=== PATIENT | male | born 1980 | race Caucasian/White ===

== ENCOUNTER 2017-11-25 03:18 | Emergency (ER) | payer MEDICARE, OTHER ==
[2017-11-25] MEDS ORDERED: NA CHLORIDE 0.9% 0 ML ONE (03:34)
[2017-11-25] MEDS ORDERED: NA CHLORIDE 0.9% 1,000 ML ONE (03:38)
[2017-11-25 04:04] LABS: Absolute Lymphocytes (CBC) 1.7 K/uL (0.7-4.9); Absolute Monocytes 0.8 K/uL (0.1-1.3); Absolute Neutrophil 9.5 K/uL (1.8-8.0); Basophils % 0.5 % (0-1.3); MCH 30.4 pg (27.0-35.0); MCV 90.2 fL (80-100); Monocytes % 6.6 % (3.3-12.3); RBC Red Blood Cell Count 5.21 M/uL (4.33-5.43)
[2017-11-25 04:08] LABS: Protime INR 1.09
[2017-11-25 04:21] LABS: Bicarbonate 26 mEq/L (21-31); Glucose Level 115 mg/dL (65-120); Lipase 17 U/L (22-51); Potassium 3.7 mEq/L (3.6-5.0); Sodium Level 136 mEq/L (135-145)
[2017-11-25 04:29] LABS: ALT/SGPT 24 IU/L (10-60); AST/SGOT 25 IU/L (10-42); Albumin 4.5 g/dL (3.2-5.5); Alkaline Phosphatase 118 IU/L (42-121); BUN Blood Urea Nitrogen 12 mg/dL (6-20); Bilirubin Total 0.6 mg/dL (0.3-1.2); CKMB Creatine Kinase MB 1.7 ng/ml (0.3-4.0); Creatine Phosphokinase 84 IU/L (22-269); Magnesium 2.1 mg/dL (1.8-2.5)
[2017-11-25 04:31] LABS: Bilirubin Direct 0.1 mg/dL (0-0.2)
[2017-11-25 04:47] LABS: Alcohol Serum/Plasma < 10 mg/dl; Salicylates Level < 4.0 mg/dl (<30)
--- NOTE | 2017-11-25 05:14 | ER ---
Nurse's Notes [facility] Name: Sg De La Garza Age: 37 yrs Sex: Male : 1980 Arrival Date: 11/25/2017 Time: 03:19 Bed 6 Private MD: Diagnosis: Weakness;Abdominal tenderness;Tobacco abuse counseling;Tobacco use Presentation: 11/25 03:31 Presenting complaint: Patient states: "I've been feeling weak the past couple of days"; lp1 States congestion, breaking out in a sweat, some upper abdominal pain and nausea. Transition of care: patient was not received from another setting of care. Initial Sepsis Screen: Does the patient meet any 2 criteria? No. Patient's initial sepsis screen is negative. Does the patient have a suspected source of infection? No. Patient's initial sepsis screen is negative. Care prior to arrival: None. 03:31 Method Of Arrival: Ambulatory lp1 03:31 Acuity: BEENA 3 lp1 03:52 Onset of symptoms was November 24, 2017. mg2 Historical: - Allergies: 03:34 Dilantin; lp1 - Home Meds: 03:34 Tegretol XR 400 mg Oral Tb12 3 tabs daily [Active]; lp1 - PMHx: 03:34 legally blind; Seizures; Manjeet Trever Syndrome; lp1 - PSHx: 03:34 None; lp1 - Immunization history:: Adult Immunizations up to date. - Social history:: Smoking status: Patient uses tobacco products, smokes one pack cigarettes per day. Patient uses Meth. - Family history:: not pertinent. Screenin:35 Abuse screen: Denies threats or abuse. Denies injuries from another. Nutritional lp1 screening: No deficits noted. Tuberculosis screening: No symptoms or risk factors identified. Fall Risk None identified. Assessment: 03:49 General: Appears in no apparent distress. comfortable, Behavior is calm, cooperative. mg2 Pain: Complains of pain in abdomen Pain does not radiate. Pain currently is 5 out of 10 on a pain scale. Quality of pain is described as aching, Pain began gradually, Is intermittent. Neuro: Level of Consciousness is awake, alert, obeys commands, Oriented to person, place, time. Cardiovascular: Capillary refill < 3 seconds Patient's skin is warm and dry. Respiratory: Airway is patent Respiratory effort is even, unlabored, Respiratory pattern is regular, symmetrical. GI: Reports lower abdominal pain. EENT: No signs and/or symptoms were reported regarding the EENT system. Derm: Skin is intact, Skin is pink, warm \\T\\ dry. normal. Musculoskeletal: No signs and/or symptoms reported regarding the musculoskeletal system. 04:38 Reassessment: Patient appears in no apparent distress at this time. Patient is alert, mg2 oriented x 3, equal unlabored respirations, skin warm/dry/pink. Vital Signs: 03:32 BP 139 / 91; Pulse 79; Resp 16; Temp 97.6(O); Pulse Ox 100% on R/A; Weight 63.5 kg; lp1 Height 5 ft. 8 in. (172.72 cm); 04:30 BP 156 / 101; Pulse 97; Resp 17; Pulse Ox 100% ; Pain 0/10; mg2 04:30 BP 148 / 94; Pulse 95; Resp 18; Pulse Ox 100% on R/A; Pain 0/10; mg2 03:32 Body Mass Index 21.29 (63.50 kg, 172.72 cm) lp1 ED Course: 03:19 Patient arrived in ED. ds1 03:24 Ar Laureano MD is Attending Physician. natividad 03:32 Triage completed. lp1 03:32 Siddharth Hernandez, WILBERT is Primary Nurse. mg2 03:32 Arm band placed on left wrist. lp1 03:35 Patient has correct armband on for positive identification. Placed in gown. Bed in low lp1 position. Call light in reach. monitoring tech on. Pulse ox on. NIBP on. 03:48 Inserted saline lock: 20 gauge in left antecubital area, using aseptic technique. Blood mg2 collected. 03:52 No provider procedures requiring assistance completed. mg2 04:10 Patient moved to radiology via wheelchair. kw 04:10 X-ray completed. Patient tolerated procedure well. kw 04:10 Patient moved back from radiology. kw 04:11 Abdomen Acute Series XRAY In Process Unspecified. EDMS 05:13 Clifton Alex MD is Referral Physician. natividad 05:31 IV discontinued, intact, bleeding controlled, No redness/swelling at site. Pressure mg2 dressing applied. Administered Medications: 03:47 Drug: NS 0.9% 1000 ml Route: IV; Rate: 1 bolus; Site: left antecubital; mg2 05:40 Follow up: Response: No adverse reaction; IV Status: Completed infusion mg2 Outcome: 05:13 Discharge ordered by MD. henson 05:41 Discharged to home ambulatory, with friend. mg2 05:41 Condition: stable 05:41 Discharge instructions given to patient, Instructed on discharge instructions, follow up and referral plans. medication usage, Demonstrated understanding of instructions, follow-up care, medications, Prescriptions given X 3. 05:43 Patient left the ED. mg2 Signatures: Dispatcher [employer] EDVT Ar Laureano MD MD cha Sanford, Demi ds1 Rufina Zaldivar Laura, WILBERT RN lp1 Siddharth Hernandez RN RN mg2 Corrections: (The following items were deleted from the chart) 05:41 05:31 Patient did not have IV access during this emergency room visit. intact, bleeding mg2 controlled, No redness/swelling at site. Pressure dressing applied, mg2
--- NOTE | 2017-11-25 05:14 | EDPHYS ---
Physician Documentation [facility] Name: Sg De La Garza Age: 37 yrs Sex: Male : 1980 Arrival Date: 11/25/2017 Time: 03:19 Bed 6 Private MD: ED Physician Ar Laureano HPI: 11/25 03:34 This 37 yrs old Male presents to ER via Ambulatory with complaints of natividad Weakness. 03:34 The patient presents to the emergency department with weakness of the entire body, natividad generalized weakness. Onset: The symptoms/episode began/occurred 3 day(s) ago. Context: occurred. Associated signs and symptoms: The patient has no apparent associated signs or symptoms. Severity of symptoms: At their worst the symptoms were mild moderate in the emergency department the symptoms are unchanged. Patient's baseline: Neuro: alert and fully oriented, Motor: no deficits, Ambulation: walks without assistance, Speech: normal, The patient has a previous history of. Historical: - Allergies: 03:34 Dilantin; lp1 - Home Meds: 03:34 Tegretol XR 400 mg Oral Tb12 3 tabs daily [Active]; lp1 - PMHx: 03:34 legally blind; Seizures; Manjeet Trever Syndrome; lp1 - PSHx: 03:34 None; lp1 - Immunization history:: Adult Immunizations up to date. - Social history:: Smoking status: Patient uses tobacco products, smokes one pack cigarettes per day. Patient uses Meth. - Family history:: not pertinent. ROS: 03:34 Constitutional: Negative for fever, chills, and weight loss, Eyes: Negative for injury, natividad pain, redness, and discharge, ENT: Negative for injury, pain, and discharge, Neck: Negative for injury, pain, and swelling, Cardiovascular: Negative for chest pain, palpitations, and edema, Respiratory: Negative for shortness of breath, cough, wheezing, and pleuritic chest pain, Back: Negative for injury and pain, : Negative for injury, bleeding, discharge, and swelling, MS/Extremity: Negative for injury and deformity, Skin: Negative for injury, rash, and discoloration, Psych: Negative for depression, anxiety, suicide ideation, homicidal ideation, and hallucinations, Allergy/Immunology: Negative for hives, rash, and allergies, Endocrine: Negative for neck swelling, polydipsia, polyuria, polyphagia, and marked weight changes. 03:34 Abdomen/GI: Positive for abdominal pain. 03:34 Abdomen/GI: Positive for 03:34 Abdomen/GI: Positive for abdominal pain, abdominal cramps. 03:34 Neuro: Positive for weakness. Exam: 03:34 Constitutional: This is a well developed, well nourished patient who is awake, alert, natividad and in no acute distress. Head/Face: Normocephalic, atraumatic. ENT: Nares patent. No nasal discharge, no septal abnormalities noted. Tympanic membranes are normal and external auditory canals are clear. Oropharynx with no redness, swelling, or masses, exudates, or evidence of obstruction, uvula midline. Mucous membranes moist. Neck: Trachea midline, no thyromegaly or masses palpated, and no cervical lymphadenopathy. Supple, full range of motion without nuchal rigidity, or vertebral point tenderness. No Meningismus. Chest/axilla: Normal chest wall appearance and motion. Nontender with no deformity. No lesions are appreciated. Cardiovascular: Regular rate and rhythm with a normal S1 and S2. No gallops, murmurs, or rubs. Normal PMI, no JVD. No pulse deficits. Respiratory: Lungs have equal breath sounds bilaterally, clear to auscultation and percussion. No rales, rhonchi or wheezes noted. No increased work of breathing, no retractions or nasal flaring. Abdomen/GI: Soft, non-tender, with normal bowel sounds. No distension or tympany. No guarding or rebound. No evidence of tenderness throughout. Back: No spinal tenderness. No costovertebral tenderness. Full range of motion. Male : Normal genitalia with no discharge or lesions. Skin: Warm, dry with normal turgor. Normal color with no rashes, no lesions, and no evidence of cellulitis. MS/ Extremity: Pulses equal, no cyanosis. Neurovascular intact. Full, normal range of motion. Neuro: Awake and alert, GCS 15, oriented to person, place, time, and situation. Cranial nerves II-XII grossly intact. Motor strength 5/5 in all extremities. Sensory grossly intact. Cerebellar exam normal. Normal gait. Psych: Awake, alert, with orientation to person, place and time. Behavior, mood, and affect are within normal limits. 03:34 Eyes: Periorbital structures: appear normal, no acute changes, Extraocular movements: no acute changes, Conjunctiva: no acute changes, Corneas: abrasion, a fluorescein strip employed to appreciate the findings, Sclera: no appreciated abnormality. 05:13 Musculoskeletal/extremity: DVT Exam: No signs of deep vein thrombosis. no pain, no natividad swelling, no tenderness, negative Homans' sign noted on exam, no appreciated bluish discoloration, no erythema, no increased warmth. Vital Signs: 03:32 BP 139 / 91; Pulse 79; Resp 16; Temp 97.6(O); Pulse Ox 100% on R/A; Weight 63.5 kg; lp1 Height 5 ft. 8 in. (172.72 cm); 04:30 BP 156 / 101; Pulse 97; Resp 17; Pulse Ox 100% ; Pain 0/10; mg2 04:30 BP 148 / 94; Pulse 95; Resp 18; Pulse Ox 100% on R/A; Pain 0/10; mg2 03:32 Body Mass Index 21.29 (63.50 kg, 172.72 cm) lp1 MDM: 03:24 Patient medically screened. [facility] 03:38 Data reviewed: vital signs, nurses notes, lab test result(s), EKG, radiologic studies, [facility] plain films. 11/25 03:32 Order name: Basic Metabolic Panel [facility] 11/25 03:32 Order name: BNP; Complete Time: 04:35 [facility] 11/25 03:32 Order name: CBC with Diff; Complete Time: 04:18 [facility] 11/25 03:32 Order name: Ckmb [facility] 11/25 03:32 Order name: CPK [facility] 11/25 03:32 Order name: LFT's [facility] 11/25 03:32 Order name: Magnesium [facility] 11/25 03:32 Order name: PT-INR; Complete Time: 04:18 [facility] 11/25 03:32 Order name: Ptt, Activated; Complete Time: 04:18 [facility] 11/25 03:32 Order name: Troponin (emerg Dept Use Only); Complete Time: 04:35 [facility] 11/25 03:32 Order name: Lipase; Complete Time: 04:35 [facility] 11/25 03:32 Order name: Urine Culture [facility] 11/25 03:33 Order name: Basic Metabolic Panel; Complete Time: 04:35 EDMS 11/25 03:33 Order name: CKMB Creatine Kinase MB; Complete Time: 04:35 [facility] 11/25 03:32 Order name: EKG; Complete Time: 03:33 [facility] 11/25 03:32 Order name: Cardiac monitoring; Complete Time: 03:46 [facility] 11/25 03:32 Order name: EKG - Nurse/Tech; Complete Time: 03:46 [facility] 11/25 03:32 Order name: IV Saline Lock; Complete Time: 03:46 [facility] 11/25 03:32 Order name: Abdomen Acute Series XRAY [facility] 11/25 03:33 Order name: Creatine Phosphokinase; Complete Time: 04:35 [facility] 11/25 03:33 Order name: Liver (Hepatic) Function; Complete Time: 04:35 [facility] 11/25 03:33 Order name: Magnesium; Complete Time: 04:35 [facility] 11/25 03:34 Order name: Acetaminophen; Complete Time: 05:12 [facility] 11/25 03:34 Order name: ETOH Level; Complete Time: 05:12 [facility] 11/25 03:34 Order name: Salicylate; Complete Time: 05:12 [facility] 11/25 03:34 Order name: Urine Drug Screen [facility] 11/25 04:17 Order name: Tegretol Level; Complete Time: 05:12 [facility] 11/25 05:16 Order name: Urine Dipstick--Ancillary (enter results) rg 11/25 03:32 Order name: Labs collected and sent; Complete Time: 03:46 [facility] 11/25 03:32 Order name: O2 Per Protocol; Complete Time: 04:23 [facility] 11/25 03:32 Order name: O2 Sat Monitoring; Complete Time: 03:46 [facility] 11/25 03:32 Order name: Urine Dipstick-Ancillary (obtain specimen); Complete Time: 05:30 [facility] Administered Medications: 03:47 Drug: NS 0.9% 1000 ml Route: IV; Rate: 1 bolus; Site: left antecubital; mg2 05:40 Follow up: Response: No adverse reaction; IV Status: Completed infusion mg2 Disposition: 11/25/17 05:13 Discharged to Home. Impression: Weakness, Abdominal tenderness, Tobacco abuse counseling, Tobacco use. - Condition is Stable. - Discharge Instructions: Abdominal Pain, Adult, Near-Syncope, Weakness, Fatigue, Abdominal Pain, Adult, [id number], Weakness, [id number]. - Prescriptions for Bentyl 10 mg Oral Capsule - take 1 capsule by ORAL route every 6 hours As needed; 40 capsule. Pepcid 20 mg Oral Tablet - take 1 tablet by ORAL route once daily for 10 days; 10 tablet. Zofran 4 mg Oral Tablet - take 1 tablet by ORAL route every 12 hours As needed; 10 tablet. - Medication Reconciliation Form, Thank You Letter, Antibiotic Education, Prescription Opioid Use form. - Follow up: Private Physician; When: 2 - 3 days; Reason: Recheck today's complaints, Continuance of care, Re-evaluation by your physician. Follow up: Clifton Alex; When: 2 - 3 days; Reason: Recheck today's complaints, Continuance of care, Re-evaluation by your physician. - Problem is new. - Symptoms have improved. Signatures: Dispatcher [employer] EDMS Ar Laureano MD MD cha Pena, Laura RN RN lp1 Siddharth Hernandez RN RN mg2 Corrections: (The following items were deleted from the chart) 05:43 05:13 11/25/2017 05:13 Discharged to Home. Impression: Weakness; Abdominal tenderness; mg2 Tobacco abuse counseling; Tobacco use. Condition is Stable. Discharge Instructions: Near-Syncope, Weakness, Fatigue, Weakness, [id number], Abdominal Pain, Adult, Abdominal Pain, Adult, Brhd-ow-[id number]. Prescriptions for Bentyl 10 mg Oral Capsule - take 1 capsule by ORAL route every 6 hours As needed; 40 capsule, Pepcid 20 mg Oral Tablet - take 1 tablet by ORAL route once daily for 10 days; 10 tablet, Zofran 4 mg Oral Tablet - take 1 tablet by ORAL route every 12 hours As needed; 10 tablet. and Forms are Medication Reconciliation Form, Thank You Letter, Antibiotic Education, Prescription Opioid Use. Follow up: Private Physician; When: 2 - 3 days; Reason: Recheck today's complaints, Continuance of care, Re-evaluation by your physician. Follow up: Clifton Alex; When: 2 - 3 days; Reason: Recheck today's complaints, Continuance of care, Re-evaluation by your physician. Problem is new. Symptoms have improved. natividad
[2017-11-25 05:53] VITALS: TEMP 97.6; O2SAT 100
[2017-11-25 05:54] VITALS: BP 148/94
[2017-11-25 07:38] LABS: Barbiturates NEGATIVE; Benzodiazepines NEGATIVE; Cocaine NEGATIVE; Opiates NEGATIVE; Phencyclidine NEGATIVE; THC Cannibis NEGATIVE
[2017-11-25 08:07] LABS: METHAMPHETAM POSITIVE
[2017-11-25 08:52] LABS: Urine Blood NEGATIVE (NEG); Urine Glucose NEGATIVE (NEG); Urine Protein NEGATIVE (NEG)
--- NOTE | 2017-11-25 09:15 | RAD REPORT ---
EXAM DESCRIPTION: RAD - Abdomen Acute Series - 11/25/2017 4:14 am CLINICAL HISTORY: Upper abdominal pain and nausea. COMPARISON: 05/31/2016, 09/07/2011 FINDINGS: The lungs are clear. A single lead pacer device is in place. The heart is normal in size. Old right-sided rib fractures present. No subdiaphragmatic free air. Two views of the abdomen demonstrate a large amount of retained stool in the colon. No pathologic chas cifications. No bowel obstruction or free air. IMPRESSION: Significant fecal retention.
--- NOTE | 2017-11-25 16:22 | EKG ---
Test Date: 2017-11-25 Test Time: 03:38:57 Cooker Loader: JOEY MEASUREMENT RESULTS: Intervals: Rate: 76 AL: 114 QRSD: 96 QT: 388 QTc: 436 [place]: P: 86 AL: 114 QRS: 90 T: 81 INTERPRETIVE STATEMENTS: Normal sinus rhythm Rightward axis Borderline ECG Compared to ECG 05/31/2016 09:25:00 Right-axis deviation now present Sinus tachycardia no longer present Atrial abnormality no longer present Electronically Signed On 11-25-17 16:19:53 CDT by Jarad Osuna
== END 2017-11-25 05:43 | disposition home or self-care (01) ==
LOC: ER 03:18
DX: R10.819 Abdominal tenderness, unspecified site (principal); G40.909 Epilepsy, unspecified, not intractable, without status epilepticus; Z72.0 Tobacco use; Z71.6 Tobacco abuse counseling; Z88.8 Allergy status to other drugs, medicaments and biological substances
CPT/HCPCS: 36415; 74022; 80048; 80076; 80156; 80307 ×9; 80320; 80329 ×2; 81003; 82550; 82553; 83690; 83735; 83880; 84484; 85025; 85610; 85730; 87086; 87088; 93005; 96360; 96361; 99284; J7030

== ENCOUNTER 2017-12-09 10:31 | Emergency (ER) | payer MEDICARE, OTHER ==
[2017-12-09 11:09] LABS: Absolute Lymphocytes (CBC) 1.2 K/uL (0.7-4.9); Absolute Monocytes 0.4 K/uL (0.1-1.3); Absolute Neutrophil 5.6 K/uL (1.8-8.0); Eosinophils % 1.5 % (0-4.4); Hematocrit 43.9 % (39.6-49.0); Lymphocytes % 16.4 % (15.3-44.8); MCH 31.1 pg (27.0-35.0); MCV 90.6 fL (80-100); MPV 7.8 fL (7.6-11.3); Monocytes % 4.8 % (3.3-12.3); RBC Red Blood Cell Count 4.84 M/uL (4.33-5.43)
[2017-12-09 11:17] LABS: Protime INR 1.16
[2017-12-09 11:22] LABS: Bicarbonate 26 mEq/L (21-31); Glucose Level 141 mg/dL (65-120); Potassium 3.5 mEq/L (3.6-5.0); Sodium Level 135 mEq/L (135-145)
[2017-12-09 11:31] LABS: ALT/SGPT 24 IU/L (10-60); AST/SGOT 26 IU/L (10-42); Albumin 3.9 g/dL (3.2-5.5); Alkaline Phosphatase 101 IU/L (42-121); BUN Blood Urea Nitrogen 17 mg/dL (6-20); Bilirubin Direct 0.1 mg/dL (0-0.2); Bilirubin Total 0.3 mg/dL (0.3-1.2); CKMB Creatine Kinase MB 1.6 ng/ml (0.3-4.0); Creatine Phosphokinase 149 IU/L (22-269); Magnesium 2.1 mg/dL (1.8-2.5); Protein, Total 7.2 g/dL (6.0-8.3)
--- NOTE | 2017-12-09 11:43 | RAD REPORT ---
EXAM DESCRIPTION: Luisa Single View12/09/2017 11:09 am CLINICAL HISTORY: Chest pain COMPARISON: November 25, 2017 FINDINGS: The lungs appear clear of acute infiltrate. The heart is normal size. A pacemaker lead as cends the left thoracic inlet/left lower neck IMPRESSION: No acute abnormalities displayed
--- NOTE | 2017-12-09 11:52 | EDPHYS ---
Physician Documentation [facility] Name: Sg De La Garza Age: 37 yrs Sex: Male : 1980 Arrival Date: 12/09/2017 Time: 10:36 Bed 13 Private MD: Clifton Alex ED Physician Guille Mcgowan HPI: 12/09 11:38 This 37 yrs old Male presents to ER via EMS with complaints of Dizziness. snw 11:38 The patient presents with generalized weakness, lightheadedness. Onset: The snw symptoms/episode began/occurred suddenly, today. Context: occurred at home, pt states he feels lightheaded. Takes tegretol, last dose last pm. States he gets lightheaded when his level is high. No dose changes. Modifying factors: The symptoms are alleviated by closing eyes, lying down. Associated signs and symptoms: The patient has no apparent associated signs or symptoms. Severity of symptoms: At their worst the symptoms were moderate. Patient's baseline: Neuro: alert and fully oriented, The patient has a previous history of Seizures and blindness. The patient has experienced similar episodes in the past. It is unknown whether or not the patient has recently seen a physician. sees Dr. Alex. 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 - Social history:: Smoking status: Patient uses tobacco products, cigars, Patient uses street drugs, Methamphetamine (Meth). - Ebola Screening: : No symptoms or risks identified at this time. ROS: 11:37 Eyes: Negative for injury, pain, redness, and discharge, ENT: Negative for injury, snw pain, and discharge, Neck: Negative for injury, pain, and swelling. 11:37 Respiratory: Negative for shortness of breath, cough, wheezing, and pleuritic chest pain, Abdomen/GI: Negative for abdominal pain, nausea, vomiting, diarrhea, and constipation, Back: Negative for injury and pain, : Negative for injury, bleeding, discharge, and swelling, MS/Extremity: Negative for injury and deformity, Skin: Negative for injury, rash, and discoloration. 11:37 Constitutional: Positive for malaise. 11:37 Cardiovascular: Positive for chest pain. 11:37 Neuro: Positive for dizziness, weakness. Exam: 11:36 Constitutional: This is a well developed, well nourished patient who is awake, alert, snw and in no acute distress. 11:36 Eyes: Pupils equal round and reactive to light, extra-ocular motions intact. Lids and lashes normal. Conjunctiva and sclera are non-icteric and not injected. Cornea within normal limits. Periorbital areas with no swelling, redness, or edema. ENT: Nares patent. No nasal discharge, no septal abnormalities noted. Tympanic membranes are normal and external auditory canals are clear. Oropharynx with no redness, swelling, or masses, exudates, or evidence of obstruction, uvula midline. Mucous membranes moist. Neck: Trachea midline, no thyromegaly or masses palpated, and no cervical lymphadenopathy. Supple, full range of motion without nuchal rigidity, or vertebral point tenderness. No Meningismus. Chest/axilla: Normal chest wall appearance and motion. Nontender with no deformity. No lesions are appreciated. Cardiovascular: Regular rate and rhythm with a normal S1 and S2. No gallops, murmurs, or rubs. Normal PMI, no JVD. No pulse deficits. Respiratory: Lungs have equal breath sounds bilaterally, clear to auscultation and percussion. No rales, rhonchi or wheezes noted. No increased work of breathing, no retractions or nasal flaring. Abdomen/GI: Soft, non-tender, with normal bowel sounds. No distension or tympany. No guarding or rebound. No evidence of tenderness throughout. Back: No spinal tenderness. No costovertebral tenderness. Full range of motion. Skin: Warm, dry with normal turgor. Normal color with no rashes, no lesions, and no evidence of cellulitis. MS/ Extremity: Pulses equal, no cyanosis. Neurovascular intact. Full, normal range of motion. Neuro: Awake and alert, GCS 15, oriented to person, place, time, and situation. Cranial nerves II-XII grossly intact. Motor strength 5/5 in all extremities. Sensory grossly intact. Cerebellar exam normal. Normal gait. 11:36 Head/face: scarred appearance. Vital Signs: 10:40 BP 158 / 109; Pulse 97; Resp 16 S; Temp 98(O); Pulse Ox 100% on R/A; Weight 58.97 kg jl7 (R); Height 5 ft. 8 in. (172.72 cm) (R); Pain 2/10; 11:15 BP 158 / 95; Pulse 91; Resp 16; Pulse Ox 100% ; jl7 13:15 BP 141 / 68; Pulse 92; Resp 16; Pulse Ox 100% ; jl7 10:40 Body Mass Index 19.77 (58.97 kg, 172.72 cm) jl7 MDM: 10:46 Patient medically screened. snw 12:33 Data reviewed: vital signs, nurses notes. Data interpreted: Pulse oximetry: on room air snw is 100 %. Interpretation: normal. Counseling: I had a detailed discussion with the patient and/or guardian regarding: the historical points, exam findings, and any diagnostic results supporting the discharge/admit diagnosis, lab results, radiology results, the need for outpatient follow up, to return to the emergency department if symptoms worsen or persist or if there are any questions or concerns that arise at home. Special discussion: Based on the history and exam findings, there is no indication for further emergent testing or inpatient evaluation. I discussed with the patient/guardian the need to see the primary care provider for further evaluation of the symptoms. 12/09 10:51 Order name: Basic Metabolic Panel; Complete Time: 11:49 w 12/09 10:51 Order name: CBC with Diff; Complete Time: 11:19 w 12/09 10:51 Order name: Ckmb; Complete Time: 11:49 w 12/09 10:51 Order name: CPK; Complete Time: 11:49 snw 12/09 10:51 Order name: LFT's; Complete Time: 11:49 snw 12/09 10:51 Order name: Magnesium; Complete Time: 11:49 snw 12/09 10:51 Order name: PT-INR; Complete Time: 11:36 snw 12/09 10:51 Order name: Ptt, Activated; Complete Time: 11:36 snw 12/09 10:51 Order name: Troponin (emerg Dept Use Only); Complete Time: 11:36 w 12/09 10:51 Order name: XRAY Chest (1 view); Complete Time: 11:43 snw 12/09 10:51 Order name: EKG; Complete Time: 10:51 w 12/09 10:51 Order name: Cardiac monitoring; Complete Time: 11:12/09 10:52 Order name: Tegretol Level; Complete Time: 11:49 w 12/09 10:51 Order name: EKG - Nurse/Tech; Complete Time: 11:12/09 10:51 Order name: IV Saline Lock; Complete Time: 11:12/09 10:51 Order name: Labs collected and sent; Complete Time: 11:12/09 10:51 Order name: O2 Per Protocol; Complete Time: :12/09 10:51 Order name: O2 Sat Monitoring; Complete Time: : snw Administered Medications: No medications were administered Disposition: 22:10 Co-signature as Attending Physician, Guille Mcgowan MD I agree with the assessment and kdr plan of care. Disposition: 12/09/17 11:51 Discharged to Home. Impression: Supratherapeutic Tegretol level. - Condition is Stable. - Discharge Instructions: Therapeutic Drug Monitoring. - Medication Reconciliation Form, Thank You Letter, Antibiotic Education, Prescription Opioid Use form. - Follow up: Clifton Alex MD; When: Tomorrow; Reason: Recheck today's complaints, Continuance of care, Re-evaluation by your physician. - Problem is new. - Symptoms are unchanged. - Notes: Please hold dose of Tegretol tonight. Signatures: Dispatcher [employer] [facility] Guille Mcgowan MD MD [facility] Roseanna Weldon, WEB DESIGN INTERN-C WEB DESIGN INTERN-Csnw Colette Alex, RN RN jl7 Corrections: (The following items were deleted from the chart) 10:54 10:51 PHENYTOIN (DILANTIN)+C.LAB.BRZ ordered. [facility] 13:28 11:51 12/09/2017 11:51 Discharged to Home. Impression: Supratherapeutic Tegretol level. jl7 Condition is Stable. Forms are Medication Reconciliation Form, Thank You Letter, Antibiotic Education, Prescription Opioid Use. Follow up: Clifton Alex; When: Tomorrow; Reason: Recheck today's complaints, Continuance of care, Re-evaluation by your physician. Problem is new. Symptoms are unchanged. snw
--- NOTE | 2017-12-09 11:52 | ER ---
Nurse's Notes [facility] Name: Sg De La Garza Age: 37 yrs Sex: Male : 1980 Arrival Date: 12/09/2017 Time: 10:36 Bed 13 Private MD: Clifton Alex Diagnosis: Supratherapeutic Tegretol level Presentation: 12/09 10:37 Presenting complaint: Patient states: "My chest started hurting last night, felt like jl7 someone was gonna rip my heart out. It doesn't hurt that bad now." C/O feeling weak since this morning. Reports using meth on Wednesday. Transition of care: patient was not received from another setting of care. Onset of symptoms was December 08, 2017. Risk Assessment: Do you want to hurt yourself or someone else? Patient reports no desire to harm self or others. Initial Sepsis Screen: Does the patient meet any 2 criteria? No. Patient's initial sepsis screen is negative. Does the patient have a suspected source of infection? No. Patient's initial sepsis screen is negative. Care prior to arrival: Medication(s) given: Normal saline infusion, 500 mL, IV initiated. 18 GA, in the left antecubital area, Glucose check: 145. 10:37 Method Of Arrival: EMS[facility] 10:37 Acuity: BEENA 3 jl7 Triage Assessment: 10:40 General: Appears in no apparent distress. uncomfortable, Behavior is calm, cooperative. jl7 Pain: Complains of pain in anterior aspect of left upper chest Pain does not radiate. Pain currently is 2 out of 10 on a pain scale. Quality of pain is described as sharp, Pain began 1 day ago. Is intermittent. EENT: Pt blind in bilateral eyes. Neuro: Level of Consciousness is awake, alert, obeys commands, Oriented to person, place, time. Cardiovascular: Heart tones S1 S2 present Patient's skin is warm and dry. Respiratory: Airway is patent Respiratory effort is even, unlabored, Respiratory pattern is regular, symmetrical. GI: No signs and/or symptoms were reported involving the gastrointestinal system. : No signs and/or symptoms were reported regarding the genitourinary system. Derm: Skin is pink, warm \\T\\ dry. Musculoskeletal: No signs and/or symptoms reported regarding the musculoskeletal system. 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 - Social history:: Smoking status: Patient uses tobacco products, cigars, Patient uses street drugs, Methamphetamine (Meth). - Ebola Screening: : No symptoms or risks identified at this time. Screenin:40 Abuse screen: Denies threats or abuse. Denies injuries from another. Nutritional jl7 screening: No deficits noted. Tuberculosis screening: No symptoms or risk factors identified. Fall Risk IV access (20 points). Total Moralez Fall Scale indicates No Risk (0-24 pts). Assessment: 10:40 General: See triage assessment. jl7 11:30 Reassessment: No changes from previously documented assessment. Patient and/or family jl7 updated on plan of care and expected duration. Pain level reassessed. Patient is alert, oriented x 3, equal unlabored respirations, skin warm/dry/pink. 12:30 Reassessment: Pt denies discomfort at this time. Awaiting for provider to go see pt. jl7 Vital Signs: 10:40 BP 158 / 109; Pulse 97; Resp 16 S; Temp 98(O); Pulse Ox 100% on R/A; Weight 58.97 kg jl7 (R); Height 5 ft. 8 in. (172.72 cm) (R); Pain 2/10; 11:15 BP 158 / 95; Pulse 91; Resp 16; Pulse Ox 100% ; jl7 13:15 BP 141 / 68; Pulse 92; Resp 16; Pulse Ox 100% ; jl7 10:40 Body Mass Index 19.77 (58.97 kg, 172.72 cm) jl7 ED Course: 10:36 Patient arrived in ED. jl7 10:39 Triage completed. jl7 10:40 Arm band placed on right wrist. jl7 10:40 Patient has correct armband on for positive identification. Placed in gown. Bed in low jl7 position. Call light in reach. Side rails up X 1. traffic monitor specialist on. Pulse ox on. NIBP on. Warm blanket given. 10:45 Roseanna Weldon FNP-C is PHCP. snw 10:45 Guille Mcgowan MD is Attending Physician. snw 10:47 EKG done, by mortuary technician. reviewed by Guille Mcgowan MD. at1 11:01 Colette Alex, RN is Primary Nurse. jl7 11:05 X-ray completed. Portable x-ray completed in exam room. Patient tolerated procedure sw well. 11:09 XRAY Chest (1 view) In Process Unspecified. EDMS 11:50 Clifton Alex MD is Private Physician. rg4 11:50 Clifton Alex MD is Referral Physician. snw 13:27 No provider procedures requiring assistance completed. IV discontinued, intact, jl7 bleeding controlled, No redness/swelling at site. Pressure dressing applied. Administered Medications: No medications were administered Outcome: 11:51 Discharge ordered by MD. snw 13:27 Discharged to home ambulatory. jl7 13:27 Condition: stable 13:27 Discharge instructions given to patient, Instructed on discharge instructions, follow up and referral plans. Demonstrated understanding of instructions, follow-up care. 13:28 Patient left the ED. jl7 Signatures: Dispatcher [employer] Roseanna Weldon FNP-C MUSIC MIXER-Csnw Delicia carvalho, senior analyst market intelligence EKG [address] Rubi rg4 Colette Alex, RN RN jl7
[2017-12-09 13:40] VITALS: TEMP 98; O2SAT 100
[2017-12-09 13:42] VITALS: BP 141/68
--- NOTE | 2017-12-10 06:53 | EKG ---
Test Date: 2017-12-09 Test Time: 10:43:05 Paper Products Supervisor: VIVIANA MEASUREMENT RESULTS: Intervals: Rate: 100 TX: 136 QRSD: 92 QT: 344 QTc: 443 [place]: P: 76 TX: 136 QRS: 83 T: 42 INTERPRETIVE STATEMENTS: Normal sinus rhythm Right atrial enlargement Borderline ECG Compared to ECG 11/25/2017 03:38:57 Atrial abnormality now present Right-axis deviation no longer present Electronically Signed On 12-10-17 06:53:11 CDT by Tan Lizama
== END 2017-12-09 13:28 | disposition home or self-care (01) ==
LOC: ER 10:31
DX: R89.2 Abnormal level of other drugs, medicaments and biological substances in specimens from other organs, systems and tissues (principal); F17.290 Nicotine dependence, other tobacco product, uncomplicated
CPT/HCPCS: 36415; 71045; 80048; 80076; 80156; 82550; 82553; 83735; 84484; 85025; 85610; 85730; 93005; 99284

== ENCOUNTER 2018-07-30 15:02 | Emergency (ER) | payer MEDICARE, OTHER ==
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
--- OUTSIDE RECORDS SUMMARY | 2018-07-30 15:04 | XMS REPORT | Clinical Summary ---
:1980 Author Organization [facility] Address [address] [place] [address] Care Team Providers Name Role Phone Asked, No Pcp Primary Care Provider Unavailable Allergies Active Allergy Reactions Severity Noted Date Comments Phenytoin Sodium Other (See Comments) 02/18/2018 [place] Extended syndrom Medications Medication Sig Dispensed Refills Start Date End Date Status carBAMazepine XR Take 1,200 mg 0 02/18/2018 Discontinued (TEGretol XR) 400 by mouth MG 12 hr tablet daily. carBAMazepine XR Take 3 180 tablet 0 02/18/2018 03/20/2018 (TEGretol XR) 200 tablets (600 MG 12 hr tablet mg total) by mouth 2 (two) times a day for 30 days. Active Problems Not on file Encounters Date Type Specialty Care Team Description 02/18/2018 Emergency Emergency Medicine [place], [place] Seizure (Primary Dx); DO Juan Carlos Abrasions of multiple sites after 07/29/2017 Social History Tobacco Use Types Packs/Day Years Used Date Current Every Day Smoker Cigars 2 20 Smokeless Tobacco: Never Used Tobacco Cessation: Ready to Quit: No; Counseling Given: Yes Alcohol Use Drinks/Week oz/Week Comments Yes occasionally Sex Assigned at Date Recorded Not on file Job Start Date Occupation Industry Not on file Not on file Not on file Travel History Travel Start Travel End No recent travel history available. Last Filed Vital Signs Vital Sign Reading Time Taken Blood Pressure 127/64 02/18/2018 8:54 AM CDT Pulse 96 02/18/2018 8:54 AM CDT Temperature 36.7 C (98 F) 02/18/2018 8:54 AM CDT Respiratory Rate 16 02/18/2018 8:54 AM CDT Oxygen Saturation 97% 02/18/2018 8:54 AM CDT Inhaled Oxygen Concentration - - Weight - - Height 172.7 cm (5' 8") 02/18/2018 7:07 AM CDT Body Mass Index - - Plan of Treatment Not on file Results Not on fileafter 07/29/2017 Insurance Payer Benefit Plan / Group Subscriber ID Type Phone Address MEDICAID MEDICAID xxxxxxxxx Medicaid [facility] JUAN xxxxxxxxx [facility] MEDICARE [facility] DUAL COMPLETE MCR xxxxxxxxx [facility] Advance Directives Patient has advance care planning documents on file. For more information, please contact:Juan Burns[address] [place] [address]
--- OUTSIDE RECORDS SUMMARY | 2018-07-30 15:05 | XMS REPORT ---
:1980 [facility] [place] [address] Care Team Providers Name Role Phone Unavailable Unavailable Unavailable Payers Payer Name Policy Type Policy Number Effective Date Expiration Date Problems This patient has no known problems. Allergies, Adverse Reactions, Alerts Allergy Allergy Status Severity Reaction(s) Onset Inactive Treating Comments Name Type Date Date Clinician phenytoin DA Active U 2017-04 00:00:0 0 Medications This patient has no known medications.
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
[2018-07-30 15:43] LABS: Absolute Lymphocytes (CBC) 1.6 K/uL (0.7-4.9); Absolute Monocytes 0.6 K/uL (0.1-1.3); Absolute Neutrophil 5.8 K/uL (1.8-8.0); Basophils % 0.7 % (0-1.3); Eosinophils % 0.4 % (0-4.4); Lymphocytes % 19.8 % (15.3-44.8); MPV 7.6 fL (7.6-11.3); Monocytes % 6.9 % (3.3-12.3); RBC Red Blood Cell Count 4.46 M/uL (4.33-5.43)
[2018-07-30 16:03] LABS: ALT/SGPT 23 U/L (12-78); AST/SGOT 14 U/L (15-37); Albumin 3.5 g/dL (3.4-5.0); Alkaline Phosphatase 103 U/L (45-117); BUN Blood Urea Nitrogen 6 mg/dL (7-18); Bicarbonate 26 mmol/L (21-32); Bilirubin Direct 0.2 mg/dL (0-0.2); Bilirubin Total 0.4 mg/dL (0.2-1.0); Glucose Level 97 mg/dL (74-106); Lipase 59 U/L (73-393); Potassium 3.5 mmol/L (3.5-5.1); Protein, Total 6.8 g/dL (6.4-8.2); Sodium Level 139 mmol/L (136-145)
--- NOTE | 2018-07-30 16:40 | RAD REPORT ---
EXAM DESCRIPTION: CT - Abdomen Pelvis W Contrast - 07/30/2018 4:24 pm CLINICAL HISTORY: Abdominal pain with nausea. COMPARISON: none. TECHNIQUE: Computed axial tomography of the abdomen pelvis was obtained. 100 cc Isovue-300 was admin istered intravenously. Oral contrast was not requested which limits evaluation of bowel. All CT scans are performed using dose optimization technique as appropriate and may include automated exposure control or mA/KV adjustment according to patient size. FINDINGS: The liver, spleen, pancreas, and adrenals appear unremarkable. Small renal cysts There is no evidence of diverticulitis. The appendix is normal. IMPRESSION: No acute abnormality is displayed.
[2018-07-30] MEDS ORDERED: ACETAMINOPHEN 500 MG TAB ONE (16:45)
--- NOTE | 2018-07-30 16:49 | EDPHYS ---
Physician Documentation [facility] Name: Sg De La Garza Age: 38 yrs Sex: Male : 1980 Arrival Date: 07/30/2018 Time: 15:07 Bed 19 Private MD: ED Physician Ar Laureano HPI: 07/30 15:34 This 38 yrs old Male presents to ER via EMS with complaints of Abdominal Pain.jr8 15:34 The patient presents with abdominal pain that is diffuse. Onset: The symptoms/episode jr8 began/occurred acutely, yesterday. The symptoms do not radiate. Associated signs and symptoms: Pertinent positives: nausea. The symptoms are described as crampy, dull. Modifying factors: The symptoms are alleviated by nothing, the symptoms are aggravated by nothing. Severity of pain: At its worst the pain was moderate in the emergency department the pain is unchanged. The patient has experienced a previous episode, stated that he had constipation then . The patient has not recently seen a physician. 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 - Social history:: Smoking status: Patient uses tobacco products, cigars. - Ebola Screening: : Patient negative for fever greater than or equal to 101.5 degrees Fahrenheit, and additional compatible Ebola Virus Disease symptoms Patient denies exposure to infectious person Patient denies travel to an Ebola-affected area in the 21 days before illness onset No symptoms or risks identified at this time. ROS: 15:34 Eyes: Negative for injury, pain, redness, and discharge, ENT: Negative for injury, jr8 pain, and discharge, Neck: Negative for injury, pain, and swelling, Cardiovascular: Negative for chest pain, palpitations, and edema, Respiratory: Negative for shortness of breath, cough, wheezing, and pleuritic chest pain, Back: Negative for injury and pain, MS/Extremity: Negative for injury and deformity, Skin: Negative for injury, rash, and discoloration, Neuro: Negative for headache, weakness, numbness, tingling, and seizure. 15:34 Abdomen/GI: Positive for abdominal pain, nausea, Negative for vomiting, diarrhea, abdominal distension, anorexia, dysphagia, hematemesis, black/tarry stool, rectal pain, rectal bleeding, bowel incontinence, flatulence. Exam: 15:34 Eyes: Pupils equal round and reactive to light, extra-ocular motions intact. Lids and jr8 lashes normal. Conjunctiva and sclera are non-icteric and not injected. Cornea within normal limits. Periorbital areas with no swelling, redness, or edema. ENT: Nares patent. No nasal discharge, no septal abnormalities noted. Tympanic membranes are normal and external auditory canals are clear. Oropharynx with no redness, swelling, or masses, exudates, or evidence of obstruction, uvula midline. Mucous membranes moist. Neck: Trachea midline, no thyromegaly or masses palpated, and no cervical lymphadenopathy. Supple, full range of motion without nuchal rigidity, or vertebral point tenderness. No Meningismus. Cardiovascular: Regular rate and rhythm with a normal S1 and S2. No gallops, murmurs, or rubs. Normal PMI, no JVD. No pulse deficits. Respiratory: Lungs have equal breath sounds bilaterally, clear to auscultation and percussion. No rales, rhonchi or wheezes noted. No increased work of breathing, no retractions or nasal flaring. Back: No spinal tenderness. No costovertebral tenderness. Full range of motion. Skin: Warm, dry with normal turgor. Normal color with no rashes, no lesions, and no evidence of cellulitis. MS/ Extremity: Pulses equal, no cyanosis. Neurovascular intact. Full, normal range of motion. Neuro: Awake and alert, GCS 15, oriented to person, place, time, and situation. Cranial nerves II-XII grossly intact. Motor strength 5/5 in all extremities. Sensory grossly intact. Cerebellar exam normal. Normal gait. 15:34 Abdomen/GI: Inspection: abdomen appears normal, Bowel sounds: active, all quadrants, Palpation: soft, in all quadrants, mild abdominal tenderness, in the mid abdomen to the right and left of the umbilicus , mass, is not appreciated, rebound tenderness, is not appreciated, voluntary guarding, is not appreciated, involuntary guarding, is not appreciated, no appreciated organomegaly, Indicators: McBurney's point is not tender, Ruth's sign is negative, Rovsing's sign is negative, Liver: tenderness, is not appreciated. Vital Signs: 15:10 BP 154 / 104; Pulse 95; Resp 18; Temp 98.5(O); Pulse Ox 100% on R/A; Weight 65.77 kg; em Height 5 ft. 8 in. (172.72 cm); Pain 6/10; 16:00 BP 137 / 95; Pulse 91; Resp 16; Pulse Ox 99% on R/A; em 16:51 BP 146 / 101; Pulse 99; Resp 16; Pulse Ox 100% on R/A; Pain 8/10; em 15:10 Body Mass Index 22.05 (65.77 kg, 172.72 cm) em MDM: 15:07 Patient medically screened. jr8 16:46 Differential diagnosis: appendicitis, bowel obstruction, diverticulitis, gastritis, jr8 non-specific abd pain, pancreatitis, Pyelonephritis, Ureterolithiasis, enteritis, constipation, gastroenteritis. Data reviewed: vital signs, nurses notes, lab test result(s), radiologic studies, CT scan, and as a result, I will discharge patient. Data interpreted: Pulse oximetry: on room air is 100 %. Interpretation: normal. Counseling: I had a detailed discussion with the patient and/or guardian regarding: the historical points, exam findings, and any diagnostic results supporting the discharge/admit diagnosis, lab results, radiology results, the need for outpatient follow up, a family practitioner, to return to the emergency department if symptoms worsen or persist or if there are any questions or concerns that arise at home. 07/30 15:22 Order name: Basic Metabolic Panel 07/30 15:22 Order name: CBC with Diff 07/30 15:22 Order name: Creatinine for Radiology 07/30 15:22 Order name: Hepatic Function 07/30 15:22 Order name: Lipase 07/30 15:44 Order name: CBC with Automated Diff; Complete Time: 15:47 EDMS 07/30 15:22 Order name: IV Saline Lock; Complete Time: 15:29 07/30 15:22 Order name: Labs collected and sent; Complete Time: 15:38 07/30 16:00 Order name: Creatinine (Radiology Only); Complete Time: 16:00 EDMS 07/30 16:00 Order name: CT Abd/Pelvis - W/Contrast; Complete Time: 16:44 jr8 07/30 16:03 Order name: Basic Metabolic Panel; Complete Time: 16:05 EDMS 07/30 16:04 Order name: Liver (Hepatic) Function; Complete Time: 16:05 EDMS 07/30 16:04 Order name: Lipase; Complete Time: 16:05 EDMS Administered Medications: 16:45 Drug: Tylenol 1000 mg Route: PO; em 17:02 Follow up: Response: Medication administered at discharge. em Disposition: 07/30/18 16:48 Discharged to Home. Impression: Generalized abdominal pain. - Condition is Stable. - Discharge Instructions: Abdominal Pain, Adult, [id number]. - Prescriptions for Bentyl 20 mg Oral Tablet - take 1 tablet by ORAL route every 6 hours As needed; 20 tablet. promethazine 25 mg Oral Tablet - take 1 tablet by ORAL route every 6 hours As needed; 20 tablet. - Medication Reconciliation Form, Thank You Letter, Antibiotic Education, Prescription Opioid Use form. - Follow up: Private Physician; When: 2 - 3 days; Reason: Recheck today's complaints, Continuance of care, Re-evaluation by your physician. - Problem is new. - Symptoms have improved. Addendum: 08/01/2018 07:48 Co-signature as Attending Physician, Ar Laureano MD I agree with the assessment and c jimenez plan of care. Signatures: Dispatcher [employer] Ar Juarez MD MD cha Munoz, Edgar, WEATHERIZATION CREW LEADER WEATHERIZATION CREW LEADER em Gibran Cooper PA PA jr8 Corrections: (The following items were deleted from the chart) 07/30 17:04 16:48 07/30/2018 16:48 Discharged to Home. Impression: Generalized abdominal pain. em Condition is Stable. Forms are Medication Reconciliation Form, Thank You Letter, Antibiotic Education, Prescription Opioid Use. Follow up: Private Physician; When: 2 - 3 days; Reason: Recheck today's complaints, Continuance of care, Re-evaluation by your physician. Problem is new. Symptoms have improved. jr8
--- NOTE | 2018-07-30 16:49 | ER ---
Nurse's Notes [facility] Name: Sg De La Garza Age: 38 yrs Sex: Male : 1980 Arrival Date: 07/30/2018 Time: 15:07 Bed 19 Private MD: Diagnosis: Generalized abdominal pain Presentation: 07/30 15:07 Presenting complaint: EMS states: lower abdominal pain since last night, denies eating em or drinking for 2 days, denies N,V,D, fever, pt is legally blind. Transition of care: patient was not received from another setting of care. Onset of symptoms was July 29, 2018. Risk Assessment: Do you want to hurt yourself or someone else? Patient reports no desire to harm self or others. Initial Sepsis Screen: Does the patient meet any 2 criteria? No. Patient's initial sepsis screen is negative. Does the patient have a suspected source of infection? No. Patient's initial sepsis screen is negative. Care prior to arrival: Medication(s) given: Normal saline infusion, 500 mL. 15:07 Method Of Arrival: EMS[facility] em 15:07 Acuity: BEENA 3 aa5 Triage Assessment: 15:10 General: Appears in no apparent distress. comfortable, Behavior is calm, cooperative, em quiet. Pain: Complains of pain in right lower quadrant and left lower quadrant. GI: Abdomen is flat, Abd is soft X 4 quads Abdomen is tender to palpation in right lower quadrant and left lower quadrant. 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 - Social history:: Smoking status: Patient uses tobacco products, cigars. - Ebola Screening: : Patient negative for fever greater than or equal to 101.5 degrees Fahrenheit, and additional compatible Ebola Virus Disease symptoms Patient denies exposure to infectious person Patient denies travel to an Ebola-affected area in the 21 days before illness onset No symptoms or risks identified at this time. Screenin:12 Abuse screen: Denies threats or abuse. Nutritional screening: No deficits noted. em Tuberculosis screening: No symptoms or risk factors identified. Fall Risk Secondary diagnosis (15 points) legally blind . Total Moralez Fall Scale indicates No Risk (0-24 pts). Assessment: 15:14 General: Appears in no apparent distress. distressed, Behavior is calm, cooperative, em Denies fever. Pain: Complains of pain in left lower quadrant and right lower quadrant. Neuro: Level of Consciousness is awake, alert, obeys commands, Oriented to person, place, time, situation. Cardiovascular: Rhythm is regular. Respiratory: Airway is patent Respiratory effort is even, unlabored, Respiratory pattern is regular, symmetrical. GI: Abdomen is flat, Bowel sounds present X 4 quads. Abd is soft X 4 quads Abdomen is tender to palpation in right lower quadrant and left lower quadrant Patient currently denies diarrhea, nausea, vomiting. : No signs and/or symptoms were reported regarding the genitourinary system. Derm: Skin is intact, Skin is pink, warm \T\ dry. Musculoskeletal: Range of motion: intact in all extremities. 15:14 Reassessment: I agree with assessment completed by Hao Guerrero LVN . aa5 16:30 Reassessment: Patient appears in no apparent distress at this time. Patient and/or em family updated on plan of care and expected duration. Pain level reassessed. Patient is alert, oriented x 3, equal unlabored respirations, skin warm/dry/pink. reports headache, provider notified, new medication orders. Vital Signs: 15:10 BP 154 / 104; Pulse 95; Resp 18; Temp 98.5(O); Pulse Ox 100% on R/A; Weight 65.77 kg; em Height 5 ft. 8 in. (172.72 cm); Pain 6/10; 16:00 BP 137 / 95; Pulse 91; Resp 16; Pulse Ox 99% on R/A; em 16:51 BP 146 / 101; Pulse 99; Resp 16; Pulse Ox 100% on R/A; Pain 8/10; em 15:10 Body Mass Index 22.05 (65.77 kg, 172.72 cm) em ED Course: 15:07 Patient arrived in ED. em 15:07 Hao Guerrero LVN is Primary Nurse. em 15:07 Gibran Cooper PA is PHCP. jr8 15:07 Ar Laureano MD is Attending Physician. jr8 15:10 Arm band placed on. em 15:12 Patient has correct armband on for positive identification. Bed in low position. Call em light in reach. Side rails up X2. Pulse ox on. NIBP on. 15:13 Maintain EMS IV. Dressing intact. Good blood return noted. Site clean \T\ dry. Gauge \T\ em site: 20 LAC. 15:22 Triage completed. aa5 16:25 CT Abd/Pelvis - W/Contrast In Process Unspecified. EDMS 16:52 No provider procedures requiring assistance completed. IV discontinued, intact, em bleeding controlled, No redness/swelling at site. Pressure dressing applied. Administered Medications: 16:45 Drug: Tylenol 1000 mg Route: PO; em 17:02 Follow up: Response: Medication administered at discharge. em Outcome: 16:48 Discharge ordered by . jr8 17:03 Discharged to home via wheelchair. em 17:03 Condition: good 17:03 Discharge instructions given to patient, Instructed on discharge instructions, follow up and referral plans. medication usage, Demonstrated understanding of instructions, follow-up care, medications, Prescriptions given X 2. 17:04 Patient left the ED. em Signatures: Dispatcher [employer] EDMS Hao Guerrero, PAPER PRODUCTS SUPERVISOR PAPER PRODUCTS SUPERVISOR em Gladis Mcginnis RN RN aa5 Gibran Cooper PA PA jr8 Corrections: (The following items were deleted from the chart) 15:13 15:07 Presenting complaint: EMS states: abdominal pain since last night, denies eating em or drinking for a few days, denies N,V,D, fever, pt is legally blind em
[2018-07-30 17:35] VITALS: TEMP 98.5
[2018-07-30 17:38] VITALS: BP 146/101; O2SAT 100
== END 2018-07-30 17:04 | disposition home or self-care (01) ==
LOC: ER 15:02
DX: R10.84 Generalized abdominal pain (principal); R56.9 Unspecified convulsions; Z88.8 Allergy status to other drugs, medicaments and biological substances
CPT/HCPCS: 36415; 74177; 80048; 80076; 83690; 85025; Q9967

== ENCOUNTER 2019-10-15 23:47 | Emergency (ER) | payer OTHER ==
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
[2019-10-16] MEDS ORDERED: SIMETHICONE 80 MG TAB ONE (01:30)
[2019-10-16 02:41] VITALS: TEMP 98; O2SAT 98
[2019-10-16 02:43] VITALS: BP 137/98
[2019-10-16 02:52] LABS: Urine Mucus 2+ /HPF (NONE SEEN)
[2019-10-16 02:53] LABS: Calcium Oxalate Crystals- Ur MODERATE (NONE SEEN); Urine Bacteria <20 /HPF (NONE SEEN); Urine Culture Reflex Order NOT NEEDED; Urine RBC <5 /HPF (NONE SEEN); Urine Urothelial Cells <5 /HPF (NONE SEEN)
--- NOTE | 2019-10-16 08:26 | RAD REPORT ---
EXAM DESCRIPTION: RAD - Abdomen Acute Series - 10/16/2019 1:25 am CLINICAL HISTORY: ABD PAIN COMPARISON: Chest Single View dated 12/09/2017; Abdomen Acute Series dated 11/25/2017; Chest Single Vi ew dated 05/31/2016; CHEST PA AND LAT 2 VIEW dated 09/07/2011 FINDINGS: The lungs are mildly emphysematous but clear of acute infiltrate. A portion of the left up per lobe is obscured by a stimulator device. No free air seen beneath either diaphragm. Moderate stool is present in the colon. No bowel obstruction or pathologic calcifications evident. No aggressive bony lesion. IMPRESSION: Moderate fecal retention.
== END 2019-10-16 02:32 | disposition home or self-care (01) ==
LOC: ER 23:47
DX: R14.1 Gas pain (principal); K59.00 Constipation, unspecified; F17.210 Nicotine dependence, cigarettes, uncomplicated; Z88.8 Allergy status to other drugs, medicaments and biological substances
CPT/HCPCS: 74022; 81015; 99284

== ENCOUNTER 2024-11-12 18:12 | Emergency (ER) | payer OTHER ==
--- NOTE | 2024-11-12 19:10 | RAD REPORT ---
EXAM: CT brain without contrast HISTORY: HEADACHE COMPARISON: 09/13/2017 TECHNIQUE: Multiple contiguous axial images were obtained and a CT of the brain without contrast. Sag ittal and coronal reformats were performed. One or more of the following dose reduction techniques were used: Automated exposure control, adjust ment of the mA and/or kV according to patient size, and/or iterative reconstruction. FINDINGS: No evidence of hydrocephalus, intracranial hemorrhage, or extra-axial fluid collection. The brain is normal in morphology. No evidence of midline shift or areas of brain edema. The calvarium is intact. Mild polypoid mucosal thickening noted in the paranasal sinuses. IMPRESSION: No evidence of acute intracranial abnormality.
[2024-11-12] MEDS ORDERED: ONDANSETRON 4 MG/2 ML VIAL ONE (19:22)
[2024-11-12] MEDS ORDERED: FENTANYL CITR 100 MCG/2 ML ONE (19:23)
[2024-11-12] MEDS ORDERED: KETOROLAC 30 MG/ML INJ ONE (19:23)
[2024-11-12] MEDS ORDERED: NA CHLORIDE 0.9% 1,000 ML ONE ×2 (19:23→20:41)
[2024-11-12 19:53] LABS: Urine Bilirubin NEGATIVE (Negative); Urine Blood Negative (Negative); Urine Clarity Clear (Clear); Urine Color Yellow (Yellow); Urine Glucose NEGATIVE (Negative); Urine Ketones NEGATIVE (Negative); Urine Microscopic Reflex YN NO UMIC; Urine Nitrite NEGATIVE (Negative); Urine Protein NEGATIVE (Negative); Urine Urobilinogen 1+ (Normal); Urine pH 5.5 (5.0-7.0)
[2024-11-12 19:54] LABS: Absolute Basophils 0.1 K/uL (0-0.5); Absolute Lymphocytes (CBC) 1.3 K/uL (0.7-4.9); Absolute Monocytes 0.6 K/uL (0.1-1.3); Absolute Neutrophil 8.8 K/uL (1.8-8.0); Basophils % 0.6 % (0-1.3); Eosinophils % 0.2 % (0-4.4); Hematocrit 38.5 % (39.6-49.0); Hemoglobin 13.1 g/dL (13.6-17.9); Lymphocytes % 12.2 % (15.3-44.8); MCH 29.7 pg (27.0-35.0); MCHC 34.2 g/dL (32.0-36.0); MCV 86.9 fL (80-100); Monocytes % 5.3 % (3.3-12.3); Neutrophils % 81.7 % (41.7-73.7); Nucleated Red Blood Cells % 0.1 % (0-0); Platelets 435 thou/uL (152-406); RBC Red Blood Cell Count 4.42 M/uL (4.33-5.43); Red Cell Distribution Width 13.4 % (12.1-15.2)
[2024-11-12 19:55] LABS: PT Prothrombin Time 12.6 SECONDS (10-13.0); Protime INR 1.11
[2024-11-12 20:08] LABS: Barbiturates NEGATIVE (NEGATIVE); Benzodiazepines NEGATIVE (NEGATIVE); Cocaine NEGATIVE (NEGATIVE); METHAMPHETAM POSITIVE (NEGATIVE); Methadone NEGATIVE (NEGATIVE); Opiates NEGATIVE (NEGATIVE); Phencyclidine NEGATIVE (NEGATIVE); THC Cannibis NEGATIVE (NEGATIVE)
[2024-11-12 20:11] LABS: ALT/SGPT 36 U/L (16-61); AST/SGOT 43 U/L (15-37); Albumin 3.6 g/dL (3.4-5.0); Alkaline Phosphatase 127 U/L (45-117); Anion Gap 7.3 mEq/L (5.0-15.0); BUN Blood Urea Nitrogen 17 mg/dL (7-18); Bicarbonate 28 mEq/L (21-32); Bilirubin Direct 0.2 mg/dL (0-0.2); Bilirubin Indirect, Calculated 0.2 mg/dL (0.2-0.8); Bilirubin Total 0.4 mg/dL (0.2-1.0); Globulin 3.7 g/dL (2.3-3.5); Glomerular Filtration Rate 110 ml/min (=/>90); Glucose Level 98 mg/dL (74-106); Potassium 3.3 mEq/L (3.5-5.1); Protein, Total 7.3 g/dL (6.4-8.2); Sodium Level 142 mEq/L (136-145); Troponin High Sensitivity 29.3 pg/mL (<58.9)
--- NOTE | 2024-11-12 21:54 | EDPHYS ---
Physician Documentation [facility] Name: Sg De La Garza Age: 44 yrs Sex: Male : 1980 Arrival Date: 11/12/2024 Time: 18:12 Bed 16 Private MD: ED Physician Ar Laureano HPI: 11/12 18:42 This 44 yrs old Male presents to ER via EMS with complaints of Doesn't Feel natividad Right. 18:42 The patient complains of pain to the top of head, forehead, left frontal area and right natividad frontal area. The patient describes the headache as aching. Onset: The symptoms/episode began/occurred 1 day(s) ago. headache , meth use. Associated signs and symptoms: The patient has no apparent associated signs or symptoms. Severity of symptoms: At its worst the pain was mild, moderate, in the emergency department the pain is unchanged. Headache History: Denies prior headaches. Severity of symptoms: At their worst the symptoms were mild in the emergency department the symptoms are unchanged. The symptoms are alleviated by nothing. the symptoms are aggravated by nothing. 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 - Infectious Disease History:: Denies. - Social history:: Smoking status: Patient reports the use of cigarette tobacco products, smokes one pack cigarettes per day. - Family history:: not pertinent. ROS: 18:42 Constitutional: Negative for fever, chills, and weight loss, Eyes: Negative for injury, natividad pain, redness, and discharge, ENT: Negative for injury, pain, and discharge, Neck: Negative for injury, pain, and swelling, Cardiovascular: Negative for chest pain, palpitations, and edema, Respiratory: Negative for shortness of breath, cough, wheezing, and pleuritic chest pain, Abdomen/GI: Negative for abdominal pain, nausea, vomiting, diarrhea, and constipation, Back: Negative for injury and pain, : Negative for injury, bleeding, discharge, and swelling, MS/Extremity: Negative for injury and deformity, Skin: Negative for injury, rash, and discoloration, Psych: Negative for depression, anxiety, suicide ideation, homicidal ideation, and hallucinations, Allergy/Immunology: Negative for hives, rash, and allergies, Endocrine: Negative for neck swelling, polydipsia, polyuria, polyphagia, and marked weight changes, 18:42 Neuro: Positive for headache, weakness, Exam: 18:42 Constitutional: This is a well developed, well nourished patient who is awake, alert, natividad and in no acute distress. Head/Face: Normocephalic, atraumatic. Eyes: Pupils equal round and reactive to light, extra-ocular motions intact. Lids and lashes normal. Conjunctiva and sclera are non-icteric and not injected. Cornea within normal limits. Periorbital areas with no swelling, redness, or edema. ENT: Nares patent. No nasal discharge, no septal abnormalities noted. Tympanic membranes are normal and external auditory canals are clear. Oropharynx with no redness, swelling, or masses, exudates, or evidence of obstruction, uvula midline. Mucous membranes moist. Neck: Trachea midline, no thyromegaly or masses palpated, and no cervical lymphadenopathy. Supple, full range of motion without nuchal rigidity, or vertebral point tenderness. No Meningismus. Chest/axilla: Normal chest wall appearance and motion. Nontender with no deformity. No lesions are appreciated. Cardiovascular: Regular rate and rhythm with a normal S1 and S2. No gallops, murmurs, or rubs. Normal PMI, no JVD. No pulse deficits. Respiratory: Lungs have equal breath sounds bilaterally, clear to auscultation and percussion. No rales, rhonchi or wheezes noted. No increased work of breathing, no retractions or nasal flaring. Abdomen/GI: Soft, non-tender, with normal bowel sounds. No distension or tympany. No guarding or rebound. No evidence of tenderness throughout. Back: No spinal tenderness. No costovertebral tenderness. Full range of motion. Skin: Warm, dry with normal turgor. Normal color with no rashes, no lesions, and no evidence of cellulitis. MS/ Extremity: Pulses equal, no cyanosis. Neurovascular intact. Full, normal range of motion., bilateral aka Neuro: Awake and alert, GCS 15, oriented to person, place, time, and situation. Cranial nerves II-XII grossly intact. Motor strength 5/5 in all extremities. Sensory grossly intact. Cerebellar exam normal. Normal gait. Psych: Awake, alert, with orientation to person, place and time. Behavior, mood, and affect are within normal limits. 20:13 ECG was reviewed by the Attending Physician. cp Vital Signs: 18:40 BP 130 / 86; Pulse 98; Resp 16; Temp 98.6(O); Pulse Ox 99% on R/A; Weight 63.5 kg; ss Height 5 ft. 8 in. ; 20:50 BP 123 / 88; Pulse 85; Resp 20; Pulse Ox 100% on R/A; kj2 21:25 BP 123 / 88; Pulse 84; Resp 16; Pulse Ox 99% ; mm11 22:06 BP 118 / 84; Pulse 84; Resp 18; Temp 98.2; Pulse Ox 99% ; kj2 18:40 Body Mass Index 21.29 (63.50 kg, 172.72 cm) ss [place] Coma Score: 18:52 Eye Response: spontaneous(4). Motor Response: obeys commands(6). Verbal Response: natividad oriented(5). Total: 15. MDM: 18:38 Medical Screening Exam initiated natividad 18:52 Differential diagnosis: cluster headache, hypertensive headache, migraine, temporal natividad arteritis, tension headache, traumatic injuries, trigeminal neuralgia, vasomotor headache. Differential Diagnosis altered mental status, sepsis. Data reviewed: vital signs, nurses notes, lab test result(s), EKG, radiologic studies, CT scan, plain films. Consideration of Admission/Observation Escalation of care including admission/observation considered. I considered the following discharge prescriptions or medication management in the emergency department Medications were administered in the Emergency Department. See MAR. Independent interpretation of the following test(s) in the Emergency Department EKG: See my EKG interpretation above CT Scan: My interpretation is ct head wo. Test considered but Not performed: MRI: no mri brain. Historians other than the Patient: EMS: EMS WELL INFORMED. Care significantly affected by the following chronic conditions: seizures, blind, SJS. Counseling: I had a detailed discussion with the patient and/or guardian regarding the historical points, exam findings, and any diagnostic results supporting the discharge/admit diagnosis, lab results, radiology results, the need for outpatient follow up, for definitive care, a family practitioner, a psychiatrist. 11/12 18:41 Order name: Acetaminophen; Complete Time: 21:47 natividad 11/12 18:41 Order name: Basic Metabolic Panel; Complete Time: 21:47 [facility] 11/12 21:48 Interpretation: Normal except: K 3.3; CL 110; CA 8.3. cp / 18:41 Order name: CBC with Diff; Complete Time: 21:47 [facility] 11/12 21:49 Interpretation: Normal except: HGB 13.1; HCT 38.5; PLT 435; MPV 7.0; ANGEL% 81.7; LYM% cp 12.2; NEUT A 8.8. 05 18:41 Order name: ETOH Level; Complete Time: 21:47 [facility] 11/12 18:41 Order name: Hepatic Function; Complete Time: 21:47 [facility] 11/12 21:50 Interpretation: Normal except: AST 43; ALK 127; GLOB 3.7; A/G 1.0. cp / 18:41 Order name: PT-INR; Complete Time: 21:47 [facility] 11/12 18:41 Order name: Ptt, Activated; Complete Time: 21:47 [facility] 11/12 18:41 Order name: Salicylate; Complete Time: 21:47 [facility] 11/12 18:41 Order name: Urine Drug Screen; Complete Time: 21:47 [facility] 11/12 21:50 Interpretation: Normal except: METHAMPHETAMINE POSITIVE. cp 11/12 18:41 Order name: UA Rfx Zaire Cult if indicated; Complete Time: 21:47 [facility] 11/12 18:41 Order name: Tegretol Level; Complete Time: 21:47 [facility] 11/12 18:41 Order name: Troponin High Sensitivity; Complete Time: 21:47 [facility] 11/12 21:51 Interpretation: Troponin HS 29.3; Reviewed. cp 11/12 18:41 Order name: CT Head Brain wo Cont; Complete Time: 19:13 [facility] 11/12 18:41 Order name: EKG; Complete Time: 18:41 [facility] 11/12 18:41 Order name: EKG - Nurse/Tech; Complete Time: 20:08 [facility] 11/12 18:41 Order name: IV Saline Lock; Complete Time: 19:44 [facility] 11/12 18:41 Order name: Labs collected and sent; Complete Time: 19:44 [facility] 11/12 18:41 Order name: Suicide Screening ([place]); Complete Time: 21:13 [facility] EC:13 Rate is 81 beats/min. Rhythm is regular. MO interval is normal. QRS interval is normal. cp QT interval is normal. T waves are Inverted in lead aVR. Interpreted by me. Reviewed by me. Administered Medications: 19:44 Drug: NS 0.9% IV 1000 ml IV at 1000 ml once; to be given as a bolus over 60 minutes kj2 Route: IV; Rate: 1000 ml; Site: left forearm; 20:49 Follow up: IV Status: Completed infusion; IV Intake: 1000ml kj2 22:04 Follow up: IV Status: Completed infusion kj2 22:04 Follow up: IV Status: Completed infusion; IV Intake: 1000ml kj2 19:45 Drug: fentaNYL (PF) IVP 50 mcg IVP once Route: IVP; Site: left forearm; kj2 22:05 Follow up: Response: No adverse reaction kj2 19:45 Drug: Ondansetron IVP 8 mg IVP once; over 2 minutes Route: IVP; Site: left forearm; kj2 22:04 Follow up: Response: No adverse reaction kj2 19:45 Drug: Ketorolac IVP 15 mg IVP once Route: IVP; Site: left forearm; kj2 22:04 Follow up: Response: No adverse reaction kj2 20:48 Drug: NS 0.9% IV 1000 ml IV at 1000 ml once; to be given as a bolus over 60 minutes kj2 Route: IV; Rate: 1000 ml; Site: left forearm; 22:30 Drug: Potassium PO Effervescent Tablet 50 mEq PO once; dissolve in 4 ounces of water or kj2 juice Route: PO; 22:32 Follow up: Response: Medication administered at discharge. kj2 Disposition: 11/13 06:21 Co-signature as Attending Physician, Ar Laureano MD I agree with the assessment and natividad plan of care. Disposition Summary: 11/12/24 21:52 Discharge Ordered Notes: Location: Home cp Problem: new cp Symptoms: have improved cp Condition: Stable cp Diagnosis - Headache cp - Dehydration cp - Hypokalemia cp - Adverse effect of amphetamines cp Followup: natividad - With: Private Physician - When: 2 - 3 days - Reason: Recheck today's complaints, Continuance of care, Re-evaluation by your physician Followup: natividad - With: Steve Walsh MD - When: 2 - 3 days - Reason: Recheck today's complaints, Re-evaluation by your physician Discharge Instructions: - Discharge Summary Sheet natividad - Dehydration, Adult natividad - General Headache Without Cause natividad - Potassium Content of Foods cp - Methamphetamines Use Disorder cp - Hypokalemia cp Forms: - Medication Reconciliation Form cp - Antibiotic Education cp - Prescription Opioid Use cp - Patient Portal Instructions cp - Leadership Thank You Letter cp Prescriptions: - diclofenac sodium 50 mg Oral tablet, delayed release (enteric coated) - take 1 tablet ORAL route 2 times per day; 14 tablet; Refills: 0, Product natividad Selection Permitted Signatures: Dispatcher [employer] EDMS Ar Laureano MD MD cha Blanchard, Shelby RN RN ss Ar Rodriges PA PA Erika Palomo, RN RN kj2 Corrections: (The following items were deleted from the chart) 11/12 18:41 18:41 ACETAMINOPHEN+C.LAB.BRZ ordered. EDMS EDMS 18:41 18:41 BASIC METABOLIC PANEL+C.LAB.BRZ ordered. EDMS EDMS 18:41 18:41 CBC+H.LAB.BRZ ordered. EDMS EDMS 18:41 18:41 ETHANOL+C.LAB.BRZ ordered. EDMS EDMS 18:41 18:41 HEPATIC FUNCTION+C.LAB.BRZ ordered. EDMS EDMS 18:41 18:41 PROTIME (+INR)+COAG.LAB.BRZ ordered. EDMS EDMS 18:41 18:41 PTT, ACTIVATED+COAG.LAB.BRZ ordered. EDMS EDMS 18:41 18:41 SALICYLATE+C.LAB.BRZ ordered. EDMS EDMS 18:41 18:41 URINE DRUG SCREEN+UC.LAB.BRZ ordered. EDMS EDMS 18:41 18:41 UA Rfx Zaire Cult if indicated+U.LAB.BRZ ordered. EDMS EDMS 18:41 18:41 CARBAMAZEPINE (TEGRETOL)+C.LAB.BRZ ordered. EDMS EDMS 20:14 18:42 ECG was reviewed by the Attending Physician. natividad cp
--- NOTE | 2024-11-12 21:54 | ER ---
Nurse's Notes [facility] Name: Sg De La Garza Age: 44 yrs Sex: Male : 1980 Arrival Date: 11/12/2024 Time: 18:12 Bed 16 Private MD: Diagnosis: Headache;Dehydration;Hypokalemia;Adverse effect of amphetamines Presentation: 11/12 18:40 Coronavirus screen: Client denies travel out of the [place] in the last 14 days. Ebola ss Screen: Patient denies exposure to infectious person. Patient denies travel to an Ebola-affected area in the 21 days before illness onset. Initial Sepsis Screen: Does the patient meet any 2 criteria? No. Patient's initial sepsis screen is negative. Does the patient have a suspected source of infection? No. Patient's initial sepsis screen is negative. Risk Assessment: Do you want to hurt yourself or someone else? Patient reports no desire to harm self or others. 18:40 Acuity: BEENA 3 ss 18:40 Method Of Arrival: [facility] 18:40 Chief complaint: EMS states: Not feeling well. Last used meth 3 days ago. Onset of ss symptoms is unknown. 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 - Infectious Disease History:: Denies. - Social history:: Smoking status: Patient reports the use of cigarette tobacco products, smokes one pack cigarettes per day. - Family history:: not pertinent. Screenin:50 [facility] ED Fall Risk Assessment (Adult) History of falling in the last 3 months, kj2 including since admission No falls in past 3 months (0 pts) Confusion or Disorientation No (0 pts) Intoxicated or Sedated No (0 pts) Impaired Gait No (0 pts) Mobility Assist Device Used No (0 pt) Altered Elimination No (0 pt) Score/Fall Risk Level 0 - 2 = Low Risk Maintained a safe environment, Hourly rounding (assess needs \\T\\ fall precautionary measures) done. Abuse screen: Denies threats or abuse. Denies injuries from another. Nutritional screening: No deficits noted. Tuberculosis screening: No symptoms or risk factors identified. Assessment: 18:50 General: Appears in no apparent distress. Behavior is cooperative. Pain: Complains of kj2 pain in forehead and top of head Pain currently is 5 out of 10 on a pain scale. Neuro: Level of Consciousness is awake, alert, obeys commands, Oriented to person, place, time, situation. Cardiovascular: Patient's skin is warm and dry. Respiratory: Airway is patent Respiratory effort is even, unlabored. GI: No signs and/or symptoms were reported involving the gastrointestinal system. : No signs and/or symptoms were reported regarding the genitourinary system. 19:50 Reassessment: Patient appears in no apparent distress at this time. Patient and/or kj2 family updated on plan of care and expected duration. Pain level reassessed. Patient is alert, oriented x 3, equal unlabored respirations, skin warm/dry/pink. 20:50 Reassessment: Patient appears in no apparent distress at this time. Patient and/or kj2 family updated on plan of care and expected duration. Pain level reassessed. Patient is alert, oriented x 3, equal unlabored respirations, skin warm/dry/pink. 20:56 Reassessment: Patient appears in no apparent distress at this time. Patient and/or kj2 family updated on plan of care and expected duration. Pain level reassessed. Patient is alert, oriented x 3, equal unlabored respirations, skin warm/dry/pink. 22:06 Reassessment: Patient appears in no apparent distress at this time. Patient and/or kj2 family updated on plan of care and expected duration. Pain level reassessed. Patient is alert, oriented x 3, equal unlabored respirations, skin warm/dry/pink. 22:31 Reassessment: RN reports to charge nurse regarding transportation for patient as he is kj2 legally blind. Charge nurse in lobby with patient. Psych: 18:50 [place] Suicide Severity Screening: In the past month, have you wished you were kj2 or wished you could go to sleep and not wake up? Patient responds "No." "In the past month, have you actually had any thoughts of killing yourself?" Patient responds "no." "In your lifetime, have you ever done anything, started to do anything, or prepared to do anything to end your life?" Patient responds "no.". Subjective: Patient's mood is appropriate. Objective: Patient is cooperative, Speech is normal, Affect is appropriate, Patient has mutilated themselves by n/a. Interventions:. Safety Checks: close to nurses station. 18:50 Patient uses methamphetamines Last use was pt reports last use of meth was yesterday. kj2 Vital Signs: 18:40 BP 130 / 86; Pulse 98; Resp 16; Temp 98.6(O); Pulse Ox 99% on R/A; Weight 63.5 kg; ss Height 5 ft. 8 in. ; 20:50 BP 123 / 88; Pulse 85; Resp 20; Pulse Ox 100% on R/A; kj2 21:25 BP 123 / 88; Pulse 84; Resp 16; Pulse Ox 99% ; mm11 22:06 BP 118 / 84; Pulse 84; Resp 18; Temp 98.2; Pulse Ox 99% ; kj2 18:40 Body Mass Index 21.29 (63.50 kg, 172.72 cm) ss Kristina Coma Score: 18:52 Eye Response: spontaneous(4). Motor Response: obeys commands(6). Verbal Response: natividad oriented(5). Total: 15. ED Course: 18:37 Patient arrived in ED. sp 18:38 Ar Laureano MD is Attending Physician. natividad 18:41 Triage completed. ss 18:41 Arm band placed on right wrist. ss 18:50 Patient has correct armband on for positive identification. Bed in low position. Call kj2 light in reach. Provided Education on: call light. 19:05 CT Head Brain wo Cont In Process Unspecified. EDMS 19:06 Ar Rodriges PA is PHCP. cp 19:13 Erika Gavin, RN is Primary Nurse. kj2 19:44 Inserted saline lock: 20 gauge in left forearm, using aseptic technique. Blood mm11 collected. Flushed with 10 mL NS. 19:44 Troponin High Sensitivity Sent. mm11 19:45 Acetaminophen Sent. mm11 19:45 Basic Metabolic Panel Sent. mm11 19:45 CBC with Diff Sent. mm11 19:45 ETOH Level Sent. mm11 19:45 Hepatic Function Sent. mm11 19:45 PT-INR Sent. mm11 19:45 Ptt, Activated Sent. mm11 19:45 Salicylate Sent. mm11 20:15 EKG done, by ED staff, reviewed by Ar HEMPHILL. mm11 21:52 Steve Walsh MD is Referral Physician. cp 22:08 No provider procedures requiring assistance completed. IV discontinued, intact, kj2 bleeding controlled, No redness/swelling at site. Pressure dressing applied. Administered Medications: 19:44 Drug: NS 0.9% IV 1000 ml IV at 1000 ml once; to be given as a bolus over 60 minutes kj2 Route: IV; Rate: 1000 ml; Site: left forearm; 20:49 Follow up: IV Status: Completed infusion; IV Intake: 1000ml kj2 22:04 Follow up: IV Status: Completed infusion kj2 22:04 Follow up: IV Status: Completed infusion; IV Intake: 1000ml kj2 19:45 Drug: fentaNYL (PF) IVP 50 mcg IVP once Route: IVP; Site: left forearm; kj2 22:05 Follow up: Response: No adverse reaction kj2 19:45 Drug: Ondansetron IVP 8 mg IVP once; over 2 minutes Route: IVP; Site: left forearm; kj2 22:04 Follow up: Response: No adverse reaction kj2 19:45 Drug: Ketorolac IVP 15 mg IVP once Route: IVP; Site: left forearm; kj2 22:04 Follow up: Response: No adverse reaction kj2 20:48 Drug: NS 0.9% IV 1000 ml IV at 1000 ml once; to be given as a bolus over 60 minutes kj2 Route: IV; Rate: 1000 ml; Site: left forearm; 22:30 Drug: Potassium PO Effervescent Tablet 50 mEq PO once; dissolve in 4 ounces of water or kj2 juice Route: PO; 22:32 Follow up: Response: Medication administered at discharge. kj2 Medication: 18:50 VIS not applicable for this client. kj2 Intake: 20:49 IV: 1000ml; Total: 1000ml. kj2 22:04 IV: 1000ml; Total: 2000ml. kj2 Outcome: 21:52 Discharge ordered by . cp 22:10 Discharged to home ambulatory, kj2 22:10 Condition: stable 22:10 Discharge instructions given to family, Instructed on Demonstrated understanding of kj2 22:33 Patient left the ED. kj2 Signatures: Dispatcher [employer] EDMS Ar Laureano MD MD cha Pinkerton, Shawna sp Blanchard, Shelby, RN RN ss Page, Ar, Erika Colin cp, RN RN kj2 sarah lyman mm11
[2024-11-12] MEDS ORDERED: POTASSIUM 25 MEQ EFFERV TAB ONE (22:13)
[2024-11-13 00:45] VITALS: O2SAT 99
[2024-11-13 00:49] VITALS: BP 118/84; TEMP 98.2
--- NOTE | 2024-11-13 12:05 | EKG ---
Test Date: 2024-11-12 Test Time: 20:09:31 Boat Hoist Operator: RAQUEL MEASUREMENT RESULTS: Intervals: Rate: 81 [place]: 126 QRSD: 98 QT: 384 QTc: 446 [place]: P: 78 [place]: 126 QRS: 81 T: 64 INTERPRETIVE STATEMENTS: Normal sinus rhythm with sinus arrhythmia Voltage criteria for left ventricular hypertrophy Nonspecific ST abnormality Abnormal ECG Compared to ECG 12/09/2017 10:43:05 Left ventricular hypertrophy now present ST (T wave) deviation now present Atrial abnormality no longer present Electronically Signed On 11-13-24 12:04:31 CDT by Alex Lemons
== END 2024-11-12 22:33 | disposition home or self-care (01) ==
LOC: ER 18:12
DX: E86.0 Dehydration (principal); E87.6 Hypokalemia; T43.625A Adverse effect of amphetamines, initial encounter; F17.210 Nicotine dependence, cigarettes, uncomplicated
CPT/HCPCS: 96361; 93005; 85025; 80048; 36415; 80156; 85610; 80076; 85730; 81003; 84484; 80307; 70450; 96375; 96374; 99285; 80143; 80179; 82077; J3010; J2405; J7030 ×2